=== PATIENT | female | born 1990 | race Caucasian/White ===

== ENCOUNTER 2017-02-11 17:38 | Emergency (ER) | payer MEDICAID ==
[~2017-02-11] VITALS: Ht 154.9 cm; Wt 79.0 kg
[~2017-02-11 17:38] MED LIST: DEPO PROVERA
[2017-02-11 18:33] VITALS: BP 120/63
== END 2017-02-11 22:00 | disposition left against medical advice (07) ==
LOC: ER 17:40
DX: R10.11 Right upper quadrant pain (principal); K92.0 Hematemesis; Z53.21 Procedure and treatment not carried out due to patient leaving prior to being seen by health care provider

== ENCOUNTER 2018-11-25 12:01 | Emergency (ER) | payer OTHER ==
[~2018-11-25] VITALS: Ht 154.9 cm; Wt 74.0 kg
[~2018-11-25 12:01] MED LIST changes: +AM250 GT
[2018-11-25] MEDS ORDERED: KETOROLAC 30MG/ML VIAL IV STA (13:08)
[2018-11-25] MEDS ORDERED: SODIUM CHLORIDE 0.9% 1,000 ML IV ONE (13:08)
[2018-11-25] MEDS ORDERED: MORPHINE SULFATE 4 MG/ML CPJ (NOT FOR IM USE) IV STA (13:08)
[2018-11-25] MEDS ORDERED: ONDANSETRON HCL 4MG/2ML INJ IV STA (13:08)
[2018-11-25 13:10] LABS: CLARITY URINE CLEAR (CLEAR); COLOR URINE YELLOW (YELLOW); KETONES URINE NEGATIVE (NEGATIVE); LEUKOCYTE ESTERASE URINE 2+ (NEGATIVE); NITRITE URINE NEGATIVE (NEGATIVE); OCCULT BLOOD URINE 1+ (NEGATIVE); PROTEIN URINE NEGATIVE (NEGATIVE); SPECIFIC GRAVITY URINE 1.014 (1.005-1.030); UROBILINOGEN URINE 0.2 E.U./dL (0.2-1.0)
[2018-11-25] MEDS ORDERED: FAMOTIDINE 20MG/2ML VIAL IV ONE (14:15)
[2018-11-25 14:29] LABS: BASOPHILS % 0.8 % (0.0-2.0); EOSINOPHILS % 2.8 % (0.0-5.0); HEMATOCRIT. 40.7 % (36.0-48.0); HEMOGLOBIN. 13.3 g/dL (12.0-16.0); MEAN CORPUSCULAR HEMOGLOBIN 27.1 pg (28.0-32.0); MEAN PLATELET VOLUME 7.5 fl (7.4-10.4); MONOCYTES % 4.4 % (2.0-8.0); PLATELET 474 x1000/uL (130-400); RED CELL DISTRIBUTION WIDTH 14.6 % (11.6-14.6)
[2018-11-25 14:35] LABS: CHLORIDE 105 mEq/L (98-107)
[2018-11-25 16:57] LABS: *AMPHETAMINES SCREEN URINE NEGATIVE (NEGATIVE); *BARBITURATES SCREEN URINE NEGATIVE (NEGATIVE); *BENZODIAZEPINES SCREEN URINE NEGATIVE (NEGATIVE); *COCAINE SCREEN URINE NEGATIVE (NEGATIVE); CANNABINOID URINE SCREEN NEGATIVE (NEGATIVE); METHADONE URINE SCREEN NEGATIVE (NEGATIVE); PHENCYCLIDINE URINE SCREEN NEGATIVE (NEGATIVE)
[2018-11-25 17:06] LABS: OPIATES URINE SCREEN PRESUMTIVE POSITIVE (NEGATIVE)
[2018-11-25 17:21] VITALS: BP 115/72
== END 2018-11-25 17:57 | disposition home or self-care (01) ==
LOC: ER 12:01
DX: K80.50 Calculus of bile duct without cholangitis or cholecystitis without obstruction (principal); R10.9 Unspecified abdominal pain; Z88.8 Allergy status to other drugs, medicaments and biological substances; Z90.49 Acquired absence of other specified parts of digestive tract; Z87.442 Personal history of urinary calculi
CPT/HCPCS: 36415; 74021; 76700; 80053; 80305; 81003; 81025; 83690; 85025; 85610; 96361; 96374; 96375; 99284; J1885; J2270; J2405; J3490; J7030

== ENCOUNTER 2019-02-03 14:06 | Emergency (ER) | payer OTHER ==
[~2019-02-03] VITALS: Ht 154.9 cm; Wt 100.0 kg
[2019-02-03] MEDS ORDERED: MORPHINE SULFATE 4 MG/ML CPJ (NOT FOR IM USE) IV STA (18:00)
[2019-02-03] MEDS ORDERED: SODIUM CHLORIDE 0.9% 1,000 ML IV ONE (18:00)
[2019-02-03] MEDS ORDERED: ONDANSETRON HCL 4MG/2ML INJ IV STA (18:00)
[2019-02-03 18:20] LABS: BASOPHILS % 0.9 % (0.0-2.0); EOSINOPHILS % 2.1 % (0.0-5.0); HEMATOCRIT. 40.1 % (36.0-48.0); HEMOGLOBIN. 13.5 g/dL (12.0-16.0); LYMPHOCYTES % 29.3 % (20.0-50.0); MEAN CORPUSCULAR HEMOGLOBIN 27.6 pg (28.0-32.0); MEAN CORPUSCULAR VOLUME 82.3 fL (81.0-99.0); MEAN PLATELET VOLUME 7.5 fl (7.4-10.4); MONOCYTES % 4.5 % (2.0-8.0); NEUTROPHILS % 63.2 % (40.0-76.0); PLATELET 449 x1000/uL (130-400); RED BLOOD CELL COUNT 4.88 mill/uL (4.2-5.4); RED CELL DISTRIBUTION WIDTH 14.1 % (11.6-14.6)
[2019-02-03 18:24] LABS: CHLORIDE 106 mEq/L (98-107)
[2019-02-03 18:26] LABS: PROTHROMBIN TIME 10.1 sec (9.6-11.0)
[2019-02-03 18:27] LABS: HCG SCREEN NEGATIVE
[2019-02-03 19:08] LABS: CLARITY URINE CLOUDY (CLEAR); COLOR URINE YELLOW (YELLOW); KETONES URINE NEGATIVE (NEGATIVE); LEUKOCYTE ESTERASE URINE 2+ (NEGATIVE); NITRITE URINE NEGATIVE (NEGATIVE); OCCULT BLOOD URINE NEGATIVE (NEGATIVE); PROTEIN URINE NEGATIVE (NEGATIVE); UROBILINOGEN URINE 0.2 E.U./dL (0.2-1.0)
[2019-02-03] MEDS ORDERED: CEFTRIAXONE 1 G PREMIX 50 ML IV ONE (20:00)
[2019-02-03 22:45] VITALS: BP 166/71
== END 2019-02-03 22:49 | disposition home or self-care (01) ==
LOC: ER 14:06
DX: N10 Acute pyelonephritis (principal); K80.80 Other cholelithiasis without obstruction; M79.7 Fibromyalgia; M32.9 Systemic lupus erythematosus, unspecified; Z88.6 Allergy status to analgesic agent
CPT/HCPCS: 36415; 76705; 80053; 81003; 81025; 83690; 84703; 85025; 85610; 87077; 87086; 87186; 96361; 96365; 96375; 99284; J0696; J2270; J2405; J7030; Z7610

== ENCOUNTER 2019-02-18 12:00 | Emergency (ER) | payer OTHER ==
[~2019-02-18] VITALS: Ht 154.9 cm; Wt 93.0 kg
[2019-02-18] MEDS ORDERED: ACETAMINOPHEN 500MG TABLET PO ONE (13:15)
[2019-02-18] MEDS ORDERED: DIAZEPAM 5 MG TABLET PO ONE (13:15)
[2019-02-18] MEDS ORDERED: KETOROLAC 15MG/ML VIAL IV ONE (15:00)
[2019-02-18 16:50] VITALS: BP 116/68
== END 2019-02-18 16:53 | disposition home or self-care (01) ==
LOC: ER 12:00
DX: S39.012A Strain of muscle, fascia and tendon of lower back, initial encounter (principal); M79.7 Fibromyalgia; M32.9 Systemic lupus erythematosus, unspecified; Z87.442 Personal history of urinary calculi; Z88.6 Allergy status to analgesic agent; Z90.49 Acquired absence of other specified parts of digestive tract; Z79.899 Other long term (current) drug therapy; W18.39XA Other fall on same level, initial encounter; Y93.01 Activity, walking, marching and hiking; Y92.89 Other specified places as the place of occurrence of the external cause; Y99.8 Other external cause status
CPT/HCPCS: 72110; 81025; 96374; 99283; J1885; Z7610

== ENCOUNTER 2019-04-28 21:05 | Emergency (ER) | payer OTHER ==
[~2019-04-28] VITALS: Ht 154.9 cm; Wt 91.0 kg
[2019-04-28 21:33] VITALS: BP 135/88
[2019-04-28 23:04] LABS: CLARITY URINE CLOUDY (CLEAR); COLOR URINE YELLOW (YELLOW); KETONES URINE NEGATIVE (NEGATIVE); LEUKOCYTE ESTERASE URINE 1+ (NEGATIVE); NITRITE URINE POSITIVE (NEGATIVE); OCCULT BLOOD URINE NEGATIVE (NEGATIVE); PH URINE 5.5 (4.5-8.0); PROTEIN URINE NEGATIVE (NEGATIVE); SPECIFIC GRAVITY URINE 1.022 (1.005-1.030); UROBILINOGEN URINE 0.2 E.U./dL (0.2-1.0)
== END 2019-04-29 01:40 | disposition left against medical advice (07) ==
LOC: ER 21:05
DX: Z53.21 Procedure and treatment not carried out due to patient leaving prior to being seen by health care provider (principal); Z88.8 Allergy status to other drugs, medicaments and biological substances; M79.7 Fibromyalgia; M32.9 Systemic lupus erythematosus, unspecified
CPT/HCPCS: 81025

== ENCOUNTER 2019-09-04 21:48 | Emergency (ER) | payer OTHER ==
[~2019-09-04] VITALS: Ht 154.9 cm; Wt 88.0 kg
[2019-09-04] MEDS ORDERED: ACETAMINOPHEN 500MG TABLET PO ONE (23:45)
[2019-09-05 01:00] VITALS: BP 11/62
== END 2019-09-05 02:33 | disposition home or self-care (01) ==
LOC: ER 21:48
DX: M79.604 Pain in right leg (principal); M79.7 Fibromyalgia; M32.9 Systemic lupus erythematosus, unspecified; Z90.49 Acquired absence of other specified parts of digestive tract; Z88.6 Allergy status to analgesic agent
CPT/HCPCS: 81025; 93971; 99284; Z7610

== ENCOUNTER 2020-04-20 20:26 | Emergency (ER) | payer OTHER ==
[~2020-04-20] VITALS: Ht 154.9 cm; Wt 90.9 kg
[2020-04-20 20:36] VITALS: BP 121/72
[2020-04-20] MEDS ORDERED: DIPHENHYDRAMINE 25MG CAPSULE PO ONE (22:30)
[2020-04-20] MEDS ORDERED: KETOROLAC 60MG/2ML VIAL IM ONE (22:30)
[2020-04-20 22:52] LABS: CLARITY URINE CLOUDY (CLEAR); COLOR URINE YELLOW (YELLOW); KETONES URINE NEGATIVE (NEGATIVE); LEUKOCYTE ESTERASE URINE 3+ (NEGATIVE); NITRITE URINE NEGATIVE (NEGATIVE); OCCULT BLOOD URINE 1+ (NEGATIVE); PH URINE 6.5 (4.5-8.0); PROTEIN URINE NEGATIVE (NEGATIVE); SPECIFIC GRAVITY URINE 1.007 (1.005-1.030)
== END 2020-04-21 00:46 | disposition left against medical advice (07) ==
LOC: ER 20:26
DX: R10.9 Unspecified abdominal pain (principal); Z90.49 Acquired absence of other specified parts of digestive tract; Z88.6 Allergy status to analgesic agent; Z87.442 Personal history of urinary calculi; Z87.448 Personal history of other diseases of urinary system
CPT/HCPCS: 81003; 96372; 99283; J1885; Q0163

== ENCOUNTER 2021-02-06 10:53 | Emergency (ER) | payer OTHER ==
[~2021-02-06] VITALS: Ht 154.9 cm; Wt 88.0 kg
[2021-02-06] MEDS ORDERED: MORPHINE SULFATE 4 MG/ML CPJ (NOT FOR IM USE) IV STA (12:18)
[2021-02-06] MEDS ORDERED: SODIUM CHLORIDE 0.9% 1,000 ML IV ONE (12:30)
[2021-02-06 12:31] LABS: BASOPHILS % 0.5 % (0.0-2.0); EOSINOPHILS % 0.4 % (0.0-5.0); HEMOGLOBIN. 13.4 g/dL (12.0-16.0); LYMPHOCYTES % 17.9 % (20.0-50.0); MEAN CORPUSCULAR HEMOGLOBIN 27.9 pg (28.0-32.0); MEAN PLATELET VOLUME 7.1 fl (7.4-10.4); MONOCYTES % 5.5 % (2.0-8.0); NEUTROPHILS % 75.7 % (40.0-76.0); PLATELET 516 x1000/uL (130-400); RED BLOOD CELL COUNT 4.82 mill/uL (4.2-5.4); RED CELL DISTRIBUTION WIDTH 14.8 % (11.6-14.6)
[2021-02-06 12:37] LABS: CHLORIDE 109 mEq/L (98-107)
[2021-02-06 12:41] LABS: PROTHROMBIN TIME 10.7 sec (9.6-11.0)
[2021-02-06 12:44] LABS: CLARITY URINE CLOUDY (CLEAR); COLOR URINE YELLOW (YELLOW); KETONES URINE NEGATIVE (NEGATIVE); LEUKOCYTE ESTERASE URINE 2+ (NEGATIVE); NITRITE URINE POSITIVE (NEGATIVE); OCCULT BLOOD URINE TRACE (NEGATIVE); PROTEIN URINE NEGATIVE (NEGATIVE); SPECIFIC GRAVITY URINE 1.013 (1.005-1.030); UROBILINOGEN URINE 0.2 E.U./dL (0.2-1.0)
[2021-02-06] MEDS ORDERED: CEFTRIAXONE 1 G PREMIX 50 ML IV NR (13:45)
[2021-02-06] MEDS ORDERED: CEPH250C2 MT (14:42)
[2021-02-06] MEDS ORDERED: TOPUD PO (14:42)
[2021-02-06 15:45] VITALS: BP 114/72
== END 2021-02-06 16:22 | disposition home or self-care (01) ==
LOC: ER 10:53
DX: N12 Tubulo-interstitial nephritis, not specified as acute or chronic (principal); Z88.6 Allergy status to analgesic agent; Z90.49 Acquired absence of other specified parts of digestive tract
CPT/HCPCS: 36415; 71045; 74176; 80053; 81003; 81025; 85025; 85610; 87077; 87086; 87186; 96361; 96365; 96375; 99285; J0696; J2270; J7030

== ENCOUNTER 2021-10-01 08:49 | Emergency (ER) | payer OTHER ==
[~2021-10-01] VITALS: Ht 154.9 cm; Wt 81.0 kg
[~2021-10-01 08:49] MED LIST changes: +CEPH250C2 MT; +TOPUD PO
[2021-10-01] MEDS ORDERED: LORAZEPAM 1MG TABLET PO ONE (09:30)
[2021-10-01] MEDS ORDERED: ACETAMINOPHEN 500MG TABLET PO ONE (09:30)
[2021-10-01] MEDS ORDERED: TRAMADOL 50MG TABLET PO ONE (09:30)
[2021-10-01 09:56] LABS: BASOPHILS % 2.2 % (0.0-2.0); HEMATOCRIT. 37.4 % (36.0-48.0); HEMOGLOBIN. 12.3 g/dL (12.0-16.0); LYMPHOCYTES % 30.4 % (20.0-50.0); MEAN CORPUSCULAR HEMOGLOBIN 26.7 pg (28.0-32.0); MEAN CORPUSCULAR VOLUME 81.1 fL (81.0-99.0); MEAN PLATELET VOLUME 7.2 fl (7.4-10.4); MONOCYTES % 7.2 % (2.0-8.0); NEUTROPHILS % 58.2 % (40.0-76.0); PLATELET 496 x1000/uL (130-400); RED BLOOD CELL COUNT 4.61 mill/uL (4.2-5.4); RED CELL DISTRIBUTION WIDTH 15.2 % (11.6-14.6)
[2021-10-01 09:59] LABS: CHLORIDE 108 mEq/L (98-107)
[2021-10-01] MEDS ORDERED: MORPHINE SULFATE 4 MG/ML CPJ (NOT FOR IM USE) IV ONE (11:00)
[2021-10-01 11:46] LABS: CLARITY URINE CLEAR (CLEAR); COLOR URINE YELLOW (YELLOW); KETONES URINE NEGATIVE (NEGATIVE); LEUKOCYTE ESTERASE URINE NEGATIVE (NEGATIVE); NITRITE URINE NEGATIVE (NEGATIVE); OCCULT BLOOD URINE 1+ (NEGATIVE); PROTEIN URINE NEGATIVE (NEGATIVE); SPECIFIC GRAVITY URINE 1.007 (1.005-1.030); UROBILINOGEN URINE 0.2 E.U./dL (0.2-1.0)
[2021-10-01 14:00] VITALS: BP 112/56
[2021-10-01] MEDS ORDERED: ONDANSETRON 4MG ODT PO ONE (14:30)
== END 2021-10-01 14:32 | disposition home or self-care (01) ==
LOC: ER 08:49
DX: G89.29 Other chronic pain (principal); M32.9 Systemic lupus erythematosus, unspecified; M79.7 Fibromyalgia; Z90.49 Acquired absence of other specified parts of digestive tract; Z88.8 Allergy status to other drugs, medicaments and biological substances
CPT/HCPCS: 36415; 71046; 80053; 81003; 85025; 93005; 96374; 99285; J2270; Q0162

== ENCOUNTER 2024-05-02 10:13 | Emergency (ER) | payer OTHER ==
[~2024-05-02] VITALS: Ht 165.1 cm; Wt 89.0 kg
[2024-05-02 10:16] VITALS: O2SAT 98
[2024-05-02 10:55] LABS: BASOPHILS % 0.7 % (0.0-2.0); EOSINOPHILS % 2.8 % (0.0-5.0); HEMATOCRIT. 39.3 % (36.0-48.0); HEMOGLOBIN. 12.9 g/dL (12.0-16.0); LYMPHOCYTES % 24.6 % (20.0-50.0); MEAN CORPUSCULAR HGB CONC 32.8 g/dL (31.0-37.0); MEAN CORPUSCULAR VOLUME 85.1 fL (81.0-99.0); MONOCYTES % 3.9 % (2.0-8.0); PLATELET 570 x1000/uL (130-400); RED BLOOD CELL COUNT 4.61 mill/uL (4.2-5.4); RED CELL DISTRIBUTION WIDTH 15.5 % (11.6-14.6); WHITE BLOOD COUNT 10.4 x1000/uL (4.5-11.0)
[2024-05-02] MEDS: SODIUM CHLORIDE 0.9% 1,000 ML IV ONE ×2 (11:08→13:00)
[2024-05-02 11:10] LABS: CHLORIDE 103 mEq/L (98-107); SODIUM 137 mEq/L (136-145)
[2024-05-02 11:11] LABS: CALCIUM 9.8 mg/dL (8.7-10.4); CARBON DIOXIDE 25 mEq/L (21-32)
[2024-05-02 11:16] LABS: CREATININE 0.8 mg/dL (0.6-1.0); GLUCOSE 96 mg/dL (70-105); UREA NITROGEN BLOOD 9 mg/dL (9-23)
[2024-05-02 11:17] LABS: ALANINE AMINOTRANSFERASE 37 IU/L (10-49)
[2024-05-02 11:18] LABS: ALBUMIN 4.8 g/dL (3.2-4.8); ASPARTATE AMINOTRANSFERASE 29 IU/L (<34); BILIRUBIN TOTAL 0.3 mg/dL (0.1-1.0); PROTEIN TOTAL 7.8 g/dL (6.0-8.3)
[2024-05-02 11:21] LABS: HCG SCREEN NEGATIVE
[2024-05-02 11:31] LABS: BILIRUBIN DIRECT < 0.1 mg/dL (<=3.0)
[2024-05-02 12:05] LABS: CLARITY URINE CLOUDY (CLEAR); COLOR URINE ORANGE (YELLOW); GLUCOSE URINE NEGATIVE (NEGATIVE); KETONES URINE NEGATIVE (NEGATIVE); LEUKOCYTE ESTERASE URINE 2+ (NEGATIVE); NITRITE URINE NEGATIVE (NEGATIVE); OCCULT BLOOD URINE 3+ (NEGATIVE); PH URINE 6.5 (4.5-8.0); PROTEIN URINE 2+ (NEGATIVE); SPECIFIC GRAVITY URINE 1.014 (1.005-1.030); UROBILINOGEN URINE 0.2 E.U./dL (0.2-1.0)
[2024-05-02] MEDS: ONDANSETRON HCL 4MG/2ML INJ IV STA (12:05)
[2024-05-02] MEDS: MORPHINE SULFATE 4 MG/ML INJ (FOR IV/IM USE) IV STA (12:06)
[2024-05-02 12:17] LABS: BACTERIA URINE 4+; RBC URINE TNTC /hpf (0-2); SQUAMOUS EPITHELIAL CELL URINE 3+ /lpf (RARE/1+); WBC URINE 25-50 /hpf (0-2)
[2024-05-02 12:18] LABS: YEAST URINE NONE SEEN
[2024-05-02] MEDS: CEFTRIAXONE 2GM/50ML 50 ML IV ONE (14:03)
[2024-05-02] MEDS ORDERED: TRAM50TA3 MT (14:39)
[2024-05-02] MEDS ORDERED: CEFP200T14 MT (14:39)
[2024-05-02 15:22] VITALS: BP 120/60; PULSE 89; RESP 16; TEMP 98.3
== END 2024-05-02 15:30 | disposition home or self-care (01) ==
LOC: ER 10:13
DX: N20.0 Calculus of kidney (principal); N39.0 Urinary tract infection, site not specified; M79.7 Fibromyalgia; Z90.49 Acquired absence of other specified parts of digestive tract; Z79.899 Other long term (current) drug therapy
CPT/HCPCS: 80076; 80048; 81003; 84703; 83605; 83690; 85025; 87040; 87086; 36415; 74176; 96361; 96365; 96375; 99285; J0696; J2405; J2270; J7030; Z7610 ×5

== ENCOUNTER 2024-06-22 11:18 | Inpatient (IN) | payer MEDICAID, OTHER ==
[~2024-06-22] VITALS: Ht 154.9 cm; Wt 91.6 kg
[~2024-06-22 11:18] MED LIST changes: +CEFP200T14 MT; +TRAM50TA3 MT
[2024-06-22 11:21] VITALS: O2SAT 100
[2024-06-22 12:26] LABS: BASOPHILS % 0.5 % (0.0-2.0); CARBON DIOXIDE 21 mEq/L (21-32); CHLORIDE 104 mEq/L (98-107); EOSINOPHILS % 2.1 % (0.0-5.0); HEMATOCRIT. 38.2 % (36.0-48.0); HEMOGLOBIN. 12.6 g/dL (12.0-16.0); LYMPHOCYTES % 19.3 % (20.0-50.0); MEAN CORPUSCULAR HEMOGLOBIN 28.3 pg (28.0-32.0); MEAN CORPUSCULAR HGB CONC 33.1 g/dL (31.0-37.0); MEAN CORPUSCULAR VOLUME 85.5 fL (81.0-99.0); MEAN PLATELET VOLUME 7.1 fl (7.4-10.4); MONOCYTES % 5.3 % (2.0-8.0); NEUTROPHILS % 72.8 % (40.0-76.0); PLATELET 572 x1000/uL (130-400); POTASSIUM 3.8 mEq/L (3.5-5.1); RED BLOOD CELL COUNT 4.46 mill/uL (4.2-5.4); RED CELL DISTRIBUTION WIDTH 14.5 % (11.6-14.6); SODIUM 136 mEq/L (136-145); WHITE BLOOD COUNT 10.5 x1000/uL (4.5-11.0)
[2024-06-22 12:27] LABS: CLARITY URINE CLOUDY (CLEAR); COLOR URINE YELLOW (YELLOW); GLUCOSE URINE NEGATIVE (NEGATIVE); KETONES URINE 2+ (NEGATIVE); LEUKOCYTE ESTERASE URINE 2+ (NEGATIVE); NITRITE URINE NEGATIVE (NEGATIVE); OCCULT BLOOD URINE 3+ (NEGATIVE); PH URINE 8.5 (4.5-8.0); PROTEIN URINE 2+ (NEGATIVE); SPECIFIC GRAVITY URINE 1.013 (1.005-1.030)
[2024-06-22 12:27] LABS: CALCIUM 9.7 mg/dL (8.7-10.4)
[2024-06-22 12:30] LABS: HCG SCREEN NEGATIVE
[2024-06-22] MEDS: SODIUM CHLORIDE 0.9% 1,000 ML IV ONE (12:30)
[2024-06-22] MEDS: ONDANSETRON HCL 4MG/2ML INJ IV NR (12:30)
[2024-06-22 12:32] LABS: CREATININE 0.8 mg/dL (0.6-1.0); GLUCOSE 117 mg/dL (70-105)
[2024-06-22 12:33] LABS: ALANINE AMINOTRANSFERASE 40 IU/L (10-49); ASPARTATE AMINOTRANSFERASE 31 IU/L (<34)
[2024-06-22 12:34] LABS: ALBUMIN 4.6 g/dL (3.2-4.8); BILIRUBIN TOTAL 0.3 mg/dL (0.1-1.0); PROTEIN TOTAL 7.3 g/dL (6.0-8.3)
[2024-06-22] MEDS: ACETAMINOPHEN 1000MG/100ML 100 ML IV ONE (12:38)
[2024-06-22 12:57] LABS: RBC URINE TNTC /hpf (0-2); SQUAMOUS EPITHELIAL CELL URINE 3+ /lpf (RARE/1+)
[2024-06-22 13:01] LABS: BACTERIA URINE 3+; WBC URINE 15-25 /hpf (0-2)
[2024-06-22 13:47] LABS: BILIRUBIN DIRECT < 0.1 mg/dL (<=3.0); UREA NITROGEN BLOOD < 5 mg/dL (9-23)
[2024-06-22] MEDS: MORPHINE SULFATE 4 MG/ML INJ (FOR IV/IM USE) IV ONE ×2 (15:07→17:30)
[2024-06-22] MEDS: CEFTRIAXONE 1GM/50ML 50 ML IV NR (17:30)
[2024-06-22] MEDS: SODIUM CHLORIDE 0.9% 1,000 ML IV SCH (23:33)
[2024-06-23] VITALS (7 sets, daily range): BP systolic 106–140; BP diastolic 53–86; PULSE 79–94; RESP 18–19; TEMP 36.33624–36.9474; O2SAT 96–100
[2024-06-23] MEDS: ONDANSETRON HCL 4MG/2ML INJ IV PRN (03:49)
[2024-06-23] MEDS: MORPHINE SULFATE 2 MG/ML INJ (NOT FOR IM USE) IV PRN (03:49)
[2024-06-23 06:43] LABS: CHLORIDE 106 mEq/L (98-107); SODIUM 137 mEq/L (136-145)
[2024-06-23 06:44] LABS: CALCIUM 9.4 mg/dL (8.7-10.4); CARBON DIOXIDE 23 mEq/L (21-32)
[2024-06-23 06:49] LABS: CREATININE 0.7 mg/dL (0.6-1.0); GLUCOSE 100 mg/dL (70-105)
[2024-06-23 06:51] LABS: ALANINE AMINOTRANSFERASE 34 IU/L (10-49); ALBUMIN 4.2 g/dL (3.2-4.8); ASPARTATE AMINOTRANSFERASE 27 IU/L (<34); BILIRUBIN TOTAL 0.4 mg/dL (0.1-1.0)
[2024-06-23 06:52] LABS: PROTEIN TOTAL 6.6 g/dL (6.0-8.3)
[2024-06-23 07:01] LABS: HEPATITIS B SURFACE ANTIGEN NEGATIVE (Negative)
[2024-06-23 07:04] LABS: BASOPHILS % 0.7 % (0.0-2.0); EOSINOPHILS % 4.2 % (0.0-5.0); HEMATOCRIT. 37.2 % (36.0-48.0); LYMPHOCYTES % 28.7 % (20.0-50.0); MEAN CORPUSCULAR HEMOGLOBIN 28.1 pg (28.0-32.0); MEAN CORPUSCULAR HGB CONC 32.4 g/dL (31.0-37.0); MEAN CORPUSCULAR VOLUME 86.6 fL (81.0-99.0); MEAN PLATELET VOLUME 7.2 fl (7.4-10.4); MONOCYTES % 5.5 % (2.0-8.0); NEUTROPHILS % 60.9 % (40.0-76.0); PLATELET 498 x1000/uL (130-400); RED BLOOD CELL COUNT 4.29 mill/uL (4.2-5.4); RED CELL DISTRIBUTION WIDTH 14.7 % (11.6-14.6); WHITE BLOOD COUNT 7.7 x1000/uL (4.5-11.0)
[2024-06-23 07:07] LABS: UREA NITROGEN BLOOD < 5 mg/dL (9-23)
[2024-06-23 07:21] LABS: HEPATITIS C AB NON REACTIVE (Neg) (Negative)
[2024-06-23] MEDS: TRAMADOL 50MG TABLET PO PRN (13:28)
[2024-06-23] MEDS ORDERED: TIZA4CAP6 PO (14:34)
[2024-06-23] MEDS ORDERED: GABA-534 MT (14:34)
[2024-06-23] MEDS ORDERED: ONDA-239 PO (14:34)
[2024-06-23] MEDS ORDERED: HYDR-4009 MT (14:34)
[2024-06-23] MEDS: CEFTRIAXONE 1GM/50ML 50 ML IV SCH (17:05)
[2024-06-23] MEDS ORDERED: NALOXONE HCL 0.4MG/ML VIAL IV PRN (20:45)
[2024-06-23] MEDS ORDERED: CEFEPIME 2GM/100ML 100 ML IV SCH (22:00)
[2024-06-23] MEDS ORDERED: ONDANSETRON HCL 4MG/2ML INJ IV PRN (22:00)
[2024-06-23] MEDS ORDERED: METOCLOPRAMIDE HCL 10MG/2ML VIAL IV SCH (22:30)
[2024-06-23] MEDS ORDERED: OXYCODONE HCL/ACETAMINOPHEN 5/325MG TABLET PO PRN (22:30)
== END 2024-06-23 22:32 | disposition left against medical advice (07) | DRG 466 ==
LOC: ER 11:18 → EDBEDREQTM 17:13 → EDBEDREQ 17:13 → 6WST 17:59 → UNDODISIN 06-23 15:47
PROVIDERS: ADMIT Internal Medicine; ATTEND Internal Medicine
DX: T83.593A Infection and inflammatory reaction due to other urinary stents, initial encounter (principal); M32.9 Systemic lupus erythematosus, unspecified; N39.0 Urinary tract infection, site not specified; M79.7 Fibromyalgia; Z53.29 Procedure and treatment not carried out because of patient's decision for other reasons; Z88.8 Allergy status to other drugs, medicaments and biological substances; Z87.442 Personal history of urinary calculi; Y83.9 Surgical procedure, unspecified as the cause of abnormal reaction of the patient, or of later complication, without mention of misadventure at the time of the procedure; N20.0 Calculus of kidney
CPT/HCPCS: 36415; 74176; 80048; 80053; 80076; 81003; 84703; 85025; 86705; 87340; 99285; J0692; J0696; J2270; J2405; J7030; J0131

== ENCOUNTER 2024-10-05 09:07 | Emergency (ER) | payer MEDICAID ==
[~2024-10-05] VITALS: Ht 154.9 cm; Wt 90.2 kg
[~2024-10-05 09:07] MED LIST changes: +GABA-534 MT; +HYDR-4009 MT; +ONDA-239 PO; +TIZA4CAP6 PO
[2024-10-05 09:17] VITALS: O2SAT 97
[2024-10-05 10:13] LABS: BASOPHILS % 0.3 % (0.0-2.0); EOSINOPHILS % 0.6 % (0.0-5.0); HEMATOCRIT. 37.3 % (36.0-48.0); LYMPHOCYTES % 12.8 % (20.0-50.0); MEAN CORPUSCULAR HEMOGLOBIN 26.9 pg (28.0-32.0); MEAN CORPUSCULAR HGB CONC 32.2 g/dL (31.0-37.0); MEAN CORPUSCULAR VOLUME 83.6 fL (81.0-99.0); MEAN PLATELET VOLUME 7.8 fl (7.4-10.4); NEUTROPHILS % 80.3 % (40.0-76.0); PLATELET 476 x1000/uL (130-400); RED BLOOD CELL COUNT 4.46 mill/uL (4.2-5.4); RED CELL DISTRIBUTION WIDTH 15.4 % (11.6-14.6); WHITE BLOOD COUNT 11.9 x1000/uL (4.5-11.0)
[2024-10-05 10:20] LABS: CHLORIDE 102 mEq/L (98-107); POTASSIUM 4.2 mEq/L (3.5-5.1); SODIUM 136 mEq/L (136-145)
[2024-10-05 10:22] LABS: CALCIUM 9.7 mg/dL (8.7-10.4); CARBON DIOXIDE 25 mEq/L (21-32)
[2024-10-05 10:27] LABS: GLUCOSE 106 mg/dL (70-105); UREA NITROGEN BLOOD 8 mg/dL (9-23)
[2024-10-05 10:29] LABS: ALANINE AMINOTRANSFERASE 23 IU/L (10-49); ALBUMIN 4.3 g/dL (3.2-4.8); ASPARTATE AMINOTRANSFERASE 15 IU/L (<34)
[2024-10-05 10:30] LABS: BILIRUBIN DIRECT 0.1 mg/dL (<=3.0); BILIRUBIN TOTAL 0.4 mg/dL (0.1-1.0); PROTEIN TOTAL 7.4 g/dL (6.0-8.3)
[2024-10-05] MEDS ORDERED: CEFEPIME 2GM IN DEXT 5% 100ML IV ONE (11:30)
[2024-10-05 11:33] VITALS: TEMP 38.00304
[2024-10-05 11:44] LABS: HCG SCREEN NEGATIVE
[2024-10-05] MEDS: HYDROCODONE/ACETAMINOPHEN 5/325MG TABLET PO ONE (11:47)
[2024-10-05] MEDS: MORPHINE SULFATE 4 MG/ML INJ (FOR IV/IM USE) IV ONE (11:48)
[2024-10-05] MEDS: ONDANSETRON 4MG ODT PO ONE (11:48)
[2024-10-05] MEDS: SODIUM CHLORIDE 0.9% (SEPSIS BOLUS) IV ONE (11:48)
[2024-10-05 11:50] LABS: CLARITY URINE CLOUDY (CLEAR); COLOR URINE YELLOW (YELLOW); GLUCOSE URINE NEGATIVE (NEGATIVE); KETONES URINE TRACE (NEGATIVE); LEUKOCYTE ESTERASE URINE 2+ (NEGATIVE); NITRITE URINE NEGATIVE (NEGATIVE); OCCULT BLOOD URINE 1+ (NEGATIVE); PROTEIN URINE 1+ (NEGATIVE); SPECIFIC GRAVITY URINE 1.009 (1.005-1.030); UROBILINOGEN URINE 0.2 E.U./dL (0.2-1.0)
[2024-10-05] MEDS: CEFEPIME 2GM/50ML DUPLEX 50 ML IV SCH (12:03)
[2024-10-05 12:43] LABS: BACTERIA URINE 3+; SQUAMOUS EPITHELIAL CELL URINE 3+ /lpf (RARE/1+)
[2024-10-05 12:44] LABS: RBC URINE 0-2 /hpf (0-2)
[2024-10-05 13:28] VITALS: TEMP 100.3
[2024-10-05] MEDS: ACETAMINOPHEN 325MG TABLET PO ONE (13:28)
[2024-10-05] MEDS ORDERED: HYDROMORPHONE HCL/PF 2MG/ML INJ IV ONE (13:30)
[2024-10-05] MEDS: HYDROMORPHONE HCL/PF 1MG/ML INJ IV NR (13:53)
[2024-10-05 14:32] VITALS: BP 109/61; PULSE 90; RESP 15; O2SAT 98
[2024-10-05 15:55] LABS: PROTHROMBIN TIME 11.4 sec (9.6-11.0)
== END 2024-10-05 16:37 | disposition left against medical advice (07) ==
LOC: ER 09:17 → EDBEDREQ 15:06 → EDBEDREQTM 15:06 → EDBEDREQSVC 15:53 → CANBEDREQ 16:37 → ER 16:37
DX: A41.9 Sepsis, unspecified organism (principal); R65.20 Severe sepsis without septic shock; N13.6 Pyonephrosis; Z90.49 Acquired absence of other specified parts of digestive tract; Z79.899 Other long term (current) drug therapy; Z88.0 Allergy status to penicillin; Z88.6 Allergy status to analgesic agent
CPT/HCPCS: 80076; 80048; 81003; 84703; 83605; 83690; 85025; 85610; 86850; 86900; 86901; 87040; 87086; 36415; 84145; 74176; 76700; 96365; 96375; 99291; Q0162; J0692; J1171; J2270; J7030; Z7610 ×3